=== PATIENT | female | born 1975 | race Caucasian/White ===

== ENCOUNTER 2017-03-13 02:13 | Emergency (ER) | payer OTHER ==
--- NOTE | ~2017-03-13 | CR72 ---
[facility] A Service of [facility] & [facility] RADIOLOGY TEXT RESULTS PATIENT: SERGE POPE LOCATION: [facility] : 75 UNIT #: [id number] AGE: [address]: Brian Del Rio SEX: F ORDER DR: [id number] [facility] [address] [place], [place] [address] [id number] E MR#: [id number] Acc #: [id number] NAME: SERGE POPE : 1975 SEX: F STUDY DATE/TIME: 03/13/2017 3:03 UNIT: [facility] ROOM: STUDY DESCRIPTION: CR Chest Single View Portable Attending Physician: Brian Del Rio P.A.-C. Ordering Physician: Brian Del Rio P.A.-C. Primary Care Physician: Primary Care Physician No MEDICAL IMAGING REPORT This report is preliminary unless electronic signature is present EXAM AP portable chest 03/13/2017 HISTORY Chest pain, heroin overdose today. COMPARISON AP portable chest 07/25/2016. FINDINGS A single AP portable view of the chest shows both lungs to be clear. The heart is normal in size. The mediastinal contour is normal. No significant bone abnormalities are seen. IMPRESSION Normal portable chest. Dictated by... Shilpa Zelaya M.D. THIS IS AN ELECTRONICALLY VERIFIED REPORT Shilpa Zelaya M.D. at 03/18/2017 4:11 PM AMADOR/tamela TD: 03/13/2017 08:43 JOB #: [id number] MEDICAL IMAGING REPORT Page 1 of 1 COPY
[~2017-03-13 02:13] MED LIST: CELEXA PO; DARVOCET-N 1001 TAB PO; DEPAKOTE PO; FLEXERIL PO; IBUPROFEN800 MG PO; KEPPRA500 MG PO; LORTAB 7.5-5001 TAB PO; MEDROL PO; NEXIUM20 MG PO; NO MEDICATIONS; PEPCID AC20 M2 PO; PHENERGAN25 MG PO; PRILOSEC PO
== END 2017-03-13 06:50 | disposition home or self-care (01) ==
LOC: CED 02:13
DX: T40.1X1A Poisoning by heroin, accidental (unintentional), initial encounter (principal); F11.10 Opioid abuse, uncomplicated; F17.210 Nicotine dependence, cigarettes, uncomplicated; Z88.5 Allergy status to narcotic agent; Z88.8 Allergy status to other drugs, medicaments and biological substances
CPT/HCPCS: 71010; 99283; 99284

== ENCOUNTER 2017-03-21 12:52 | Emergency (ER) | payer OTHER ==
--- NOTE | ~2017-03-21 | CR72 ---
[facility] A Service of [facility] RADIOLOGY TEXT RESULTS PATIENT: SERGE POPE LOCATION: [facility] : 75 UNIT #: [id number] AGE: [address]: Digna Nj MD SEX: F ORDER DR: [id number] [facility] [address] [place], [place] [address] [id number] E MR#: [id number] Acc #: [id number] NAME: SERGE POPE : 1975 SEX: F STUDY DATE/TIME: 03/21/2017 13:38 UNIT: [facility] ROOM: STUDY DESCRIPTION: CR Chest Single View Portable Attending Physician: Digna Nj M.D. Ordering Physician: Digna Nj M.D. Primary Care Physician: No Primary Care Physician MEDICAL IMAGING REPORT This report is preliminary unless electronic signature is present EXAM Portable chest. INDICATIONS Chest pain today after chest compressions. COMPARISON 03/13/2017 FINDINGS No acute-appearing infiltrate. Heart size normal. Visualized osseous structures are unremarkable. IMPRESSION No active disease. Dictated by... Samuel Zimmer M.D. THIS IS AN ELECTRONICALLY VERIFIED REPORT Samuel Zimmer M.D. at 03/22/2017 3:49 PM Ranjan TD: 03/22/2017 00:20 JOB #: [id number] MEDICAL IMAGING REPORT Page 1 of 1 COPY
== END 2017-03-21 15:02 | disposition home or self-care (01) ==
LOC: CED 12:52
DX: S20.219A Contusion of unspecified front wall of thorax, initial encounter (principal); F11.10 Opioid abuse, uncomplicated; F17.200 Nicotine dependence, unspecified, uncomplicated; Z88.8 Allergy status to other drugs, medicaments and biological substances; Z88.5 Allergy status to narcotic agent; Z88.6 Allergy status to analgesic agent; Z79.899 Other long term (current) drug therapy; X58.XXXA Exposure to other specified factors, initial encounter; Y92.9 Unspecified place or not applicable
CPT/HCPCS: 71010; 99283

== ENCOUNTER 2017-03-25 11:38 | Emergency (ER) | payer OTHER ==
[2017-03-25 13:03] LABS: BASOPHIL# 0.1 X10e3 (0-0.3); BASOPHIL% 1.2 % (0-2.5); EOSINOPHIL# 0.2 X10e3 (0-0.7); EOSINOPHIL% 2.7 % (0.0-7.0); HEMATOCRIT 35.6 % (35.0-45.0); HEMOGLOBIN 11.9 gm/dL (12.0-16.0); LYMPHOCYTE# 3.7 X10e3 (1.0-3.5); LYMPHOCYTE% 42.6 % (17.0-45.0); MEAN CELL VOLUME 94.2 FL (83-96); MEAN CORPUSCULAR HEMOGLOBIN 31.4 PG (28-34); MEAN CORPUSCULAR HGB CONC 33.3 g/dL (30-36); MEAN PLATELET VOLUME 9.2 FL (6.5-11.5); MONOCYTE# 0.8 X10e3 (0-1.0); MONOCYTE% 9.3 % (3.0-12.0); NEUTROPHIL# 3.8 X10e3 (1.5-7.1); NEUTROPHIL% 44.2 % (40-75); PLATELET COUNT 257 X10e3 (140-420); RED BLOOD COUNT 3.78 X10e (3.90-5.30); RED CELL DISTRIBUTION WIDTH 13.9 % (11.0-15.5); WHITE BLOOD COUNT 8.6 X10e3 (4.0-10.5)
[2017-03-25 13:04] LABS: DIFF IND NO
[2017-03-25 13:28] LABS: BUN/CREATININE RATIO 18.88; CALCIUM SERUM 8.7 mg/dL (8.4-10.2); CREATININE SERUM 0.9 mg/dL (0.6-1.4); GLOM FILT RATE Estimated 79.5 mL/min (>60); POTASSIUM 3.3 mmol/L (3.5-5.1)
== END 2017-03-25 13:44 | disposition home or self-care (01) ==
LOC: CED 11:38 → CFTX 11:38
PROVIDERS: Nurse Practitioner
DX: L03.113 Cellulitis of right upper limb (principal); Z90.49 Acquired absence of other specified parts of digestive tract; F17.210 Nicotine dependence, cigarettes, uncomplicated
CPT/HCPCS: 36415; 80048; 85025; 90471; 90715; 96360; 99284

== ENCOUNTER 2017-04-24 16:16 | Inpatient (IN) | payer OTHER ==
--- NOTE | ~2017-04-24 | CR71 ---
[facility] A Service of [facility] & [facility] RADIOLOGY TEXT RESULTS PATIENT: SERGE POPE LOCATION: [address] : 75 UNIT #: [id number] AGE: [address]: Franky Sherman MD SEX: F ORDER DR: [id number] [facility] [address] [place], [place] [address] [id number] I MR#: [id number] Acc #: [id number] NAME: SERGE POPE : 1975 SEX: F STUDY DATE/TIME: 04/24/2017 19:34 UNIT: [facility] ROOM: [facility] STUDY DESCRIPTION: CR Chest Single View Attending Physician: Melvin Palumbo M.D. Ordering Physician: Ed Asad Morales M.D. Primary Care Physician: No Primary Care Physician MEDICAL IMAGING REPORT This report is preliminary unless electronic signature is present EXAM Chest x-ray, 04/24/17. HISTORY PICC placement. TECHNIQUE AP portable chest x-ray. FINDINGS Newly placed right arm PICC tip is in good position in the mid SVC. No change since earlier today. The lungs are clear. No pleural effusion. IMPRESSION Newly placed PICC in good position. Dictated by... Saman Gruber M.D. THIS IS AN ELECTRONICALLY VERIFIED REPORT Saman Gruber M.D. at 04/28/2017 10:33 AM CAROLEE/azul TD: 04/24/2017 23:53 JOB #: [id number] MEDICAL IMAGING REPORT Page 1 of 1 COPY
--- NOTE | ~2017-04-24 | CO ---
Unit #: [id number] #: [id number] Patient: SERGE ZAMBRANO [id number] [facility] [address] [place], [place] [address] [id number] I MR#: [id number] NAME: SERGE ZAMBRANO [facility]: [facility] Age: 41 Sex: F Admission Date: 04/24/2017 : 1975 Attending Physician: Franky Sherman M.D. Primary Care Physician: Primary Care Physician No Consultation Date: 04/25/2017 CONSULTATION REPORT HISTORY OF PRESENT ILLNESS Ms. Zambrano is a 41-year-old white female with a history of seizure disorder, IV drug abuse, and substance abuse. She suffered a seizure yesterday, was admitted to [facility] ICU for observation. She is on mild pressors at this time, but is fully awake, alert, and hemodynamically stable. She complains of no risk factor symptoms. 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 PAST SURGICAL HISTORY Include laparotomy, tubal ligation, cholecystectomy. MEDICATIONS Include iron sulfate, Keppra, Trileptal, lisinopril, and metoprolol. ALLERGIES She has allergies to phenytoin, Ketoralac and tramadol. SOCIAL HISTORY Positive for tobacco and IV drugs. FAMILY HISTORY Negative. REVIEW OF SYSTEMS Negative for shortness of breath, cough, sputum production, fever, chills, hemoptysis, hoarseness or weight loss. She has had no chest pain, nausea, vomiting, diarrhea, skin lesions, but has suffered seizures and continued substance abuse. PHYSICAL EXAMINATION VITAL SIGNS: She is afebrile, hemodynamically stable. HEAD AND NECK: Significant for pupils are round and reactive to light. Sclerae nonicteric. There is no supraclavicular or cervical adenopathy. CHEST: Has extremely rare wheeze, but no areas of consolidation. CARDIAC: Systolic murmurs present without S3. ABDOMEN: Soft and nontender without an enlargement of liver and spleen. EXTREMITIES: Showed multiple tattoos, but no clubbing or cyanosis. NEUROLOGIC: She is awake, alert, and oriented x3. It showed no gross focal defects. MUSCULOSKELETAL: Joints are not inflamed or swollen at this time. Unit #: [id number] #: [id number] Patient: SERGE ZAMBRANO DIAGNOSTIC STUDIES LABORATORY RESULTS: Included sodium 137, potassium 3.4, chloride 114, CO2 of 20, glucose 96, creatinine 0.8. CBC showed white count of 8.5, hematocrit of 29. IMAGING STUDIES: Chest x-ray by report showed clear lungs. IMPRESSION Hemodynamically stable following a seizure disorder and ongoing substance abuse. We will continue ICU observation until her seizures are well controlled and follow with her. Dictated by... Jorden Toney/obinna TD: 04/26/2017 07:09 JOB #: [id number] CONSULTATION REPORT Page 1 of 1 X Remy Crooks MD X CONSULTATION REPORT
--- NOTE | ~2017-04-24 | CO ---
Unit #: [id number] #: [id number] Patient: SERGE POPE [id number] [facility] [address] [place], [place] [address] [id number] I MR#: [id number] NAME: SERGE POPE. ROOM: [facility] Age: 41 Sex: F Admission Date: 04/24/2017 : 1975 Attending Physician: Franky Sherman M.D. Primary Care Physician: Primary Care Physician No Consultation Date: 04/25/2017 CONSULTATION REPORT REASON FOR CONSULTATION Seizure. PATIENT IDENTIFICATION This is a 41-year-old right-handed white female, who was evaluated in room ICU 17 at [facility]. SOURCE OF INFORMATION The patient and previous records. Actually, I saw this patient in 07/2016. PROBLEM LIST 1. History of polysubstance abuse. 2. IV drug use. 3. Prior seizures. 4. Endocarditis. 5. History of back problem. 6. Prior history of septic pulmonary emboli. 7. Prior history of pneumonia. 8. Lumbar diskitis, L5-S1. 9. Prior history of anemia. 10. Thrombocytopenia. 11. Prior history of UTI. 12. GERD. 13. Prior history of rhabdomyolysis. HISTORY OF PRESENT ILLNESS This is a 41-year-old female, who is actually known to me. She was seen here last year. She had several seizure. She had PRES. She was started on several antiepileptics and she did fairly well. Then, she has to follow up for her endocarditis and other conditions and it looks like things were going well until the last few days when she came back to see the family and she did of management of epilepsy. The first one she stopped taking her antiepileptics and the second one was she started doing drugs and some stimulants like meth and also she uses heroin. She may have overdosed. She was hypotensive and she came in and she had at least one witnessed seizure, maybe more. She was given her medication and she did fairly well. She is now awake and alert and oriented and wants to go home. Previously, she had vision changes, but denies anything. Her head CT looked okay. Her labs are being investigated. She says that she has done fairly well since July when she was Unit #: [id number] #: [id number] Patient: SERGE POPE compliant. I am not sure whom she is following up with neurologically. Her blood pressure was low. So, now she is doing very well neurologically otherwise intact, no status, no seizure. PAST MEDICAL HISTORY As discussed above. PAST SURGICAL HISTORY 1. She has had cholecystectomy. 2. Bilateral tubal ligation. 3. Exploratory laparotomy. ALLERGIES 1. Phenytoin. 2. Ketorolac. 3. Tramadol. HOME MEDICATIONS Iron sulfate, Keppra 500 mg b.i.d., lisinopril, metoprolol. FAMILY HISTORY No seizures or neurological issues. SOCIAL HISTORY Unfortunately, she continues to do IV drugs or maybe this was relapse. She continues to smoke about 1-1/2 pack per day. REVIEW OF SYSTEMS Mostly as discussed in history of present illness. CONSTITUTIONAL: She denies any further seizures. Denies any weight issues, fever, chills, rigor, or sweats. HEENT: No headaches. No double vision, earache, runny nose, or sore throat. No loss of vision. NECK: No neck pain. CARDIOVASCULAR: No chest pain, clubbing, cyanosis, orthopnea, or palpitation. PULMONARY: No shortness of air, cough, or expectoration. GI: No nausea, vomiting, diarrhea, or constipation. GENITOURINARY: No genitourinary symptom. EXTREMITIES: No extremity problems otherwise. BACK: No active back problem. PSYCHIATRIC: No psychotic issue. NEUROLOGIC: Seizure. No other hematologic, dermatologic, or endocrine problem known to me right now. PHYSICAL EXAMINATION VITAL SIGNS: Temperature is 98.2, pulse 89, respirations 16, blood pressure 97/67, O2 saturations were 97% to 99%. Weight of 125 pounds. BMI was 20. NEUROLOGIC: The patient is awake. She is alert. She is fully oriented. She can name. She can follow commands. No right or left confusion. No finger agnosia. Cranial nerve examination demonstrates full villalpando of vision to Unit #: [id number] #: [id number] Patient: SERGE POPE confrontation. Eye movements are conjugate. I did not see any ptosis. I did not see any nystagmus. Funduscopic examination was not successful. Sensation on the face and scalp are normal. Strength of muscles of facial expression normal. Hearing seemed to be intact bilaterally. Tongue was midline. Uvula was midline. Palate elevation was normal. Head turning and shoulder shrugs were unremarkable. No neck stiffness was seen. Motor examination demonstrated normal bulk, tone. Strength was essentially 5-/5 all over. Sensory examination intact for soft touch and pain sensation. No extinction was seen. Romberg was not evaluated. Gait examination was deferred. I could not get any reflexes. Toes are equivocal. Coordination was otherwise unremarkable. DIAGNOSTIC STUDIES LABORATORY RESULTS: Reviewed. Calcium was 7.7, albumin was 1.9. White count was 8.5, RBC count was 2.98, H and H of 9.6 and 27.4, and platelet count was 180. Urine drug screen was positive for amphetamines and marijuana. IMAGING STUDIES: Head CT was reported as unremarkable. IMPRESSION This is a 41-year-old female with known history of seizures and endocarditis and other problems. Neurologically, she is awake and alert and fully oriented. Neurologically, she is not in status. Neurologically, what I found was that she stopped taking her Keppra and I am not sure if she is taking Trileptal, but we will try to resume all her home medications and whatever they were, because so far I have not heard there were causing any side effects or other issues but followup with Neurology. She is not in status. She has not had any further seizures. The second bad thing that she did was she started taking stimulants and drugs, so refrain from that and may be referred to NA. Endocarditis and other issues that need to be addressed by the primary team. I will observe her neurologically. Seizure precautions and state laws apply again. Call me for any other questions, issues, or concerns. If there is any further issues please call me again and only issue I have is to resume the home medication which she promised and I am not really seeing Trileptal, but I will try to find out. If there is any other questions, please let me know. Previously, she was on Vimpat, so likely that may have been substituted. Sodium is okay. The RBC count is little bit low, but that needs to be followed up otherwise observe and follow up with Neurology. Dictated by... Angel Alarcon M.D. NEHAL/obinna TD: 04/26/2017 06:06 JOB #: [id number] Unit #: [id number] #: [id number] Patient: SERGE POPE CONSULTATION REPORT Page 1 of 1 X Angel Alarcon MD CONSULTATION REPORT
--- NOTE | ~2017-04-24 | HP ---
Unit #: [id number] #: [id number] Patient: SERGE POPE [id number] [address] [address] [id number] I MR#: [id number] NAME: SERGE POPE ROOM: [facility] Age: 41 Sex: F Admission Date: 04/24/2017 : 1975 Attending Physician: Mehul Palumbo M.D. Primary Care Physician: Primary Care Physician No HISTORY AND PHYSICAL CHIEF COMPLAINT Seizures. HISTORY OF PRESENT ILLNESS The patient is a 41-year-old female with history of IV drug abuse and tricuspid valve endocarditis, status post medical treatment, brought to the emergency room at [facility] with seizures. The patient stated the patient was clean since July of last year and then went to see her kids. The patient started using heroin and meth over the weekend. The patient was found to be hypotensive for the last few days with blood pressure in the range of 60s to 70s. However, this morning, the patient had a syncopal episode with seizures. The patient was brought to the emergency room for the above reasons. The patient denies any fever, chills, nausea, or vomiting. The patient was found to be hypotensive in the emergency room at the [facility] with the blood pressure ranging in the 73/37 and received a total of 6 liters of fluid. The blood pressure right now is in the range of 85 to 90s. The patient is being admitted for the above reasons. PAST MEDICAL HISTORY 1. History of back problems. 2. Polysubstance abuse. 3. IV drug abuse. 4. Seizure disorder. 5. GERD. 6. Endocarditis. PAST SURGICAL HISTORY 1. Exploratory laparotomy. 2. Bilateral tubal ligation. 3. Cholecystectomy. HOME MEDICATIONS 1. Iron sulfate. 2. Keppra. 3. Trileptal. 4. Lisinopril. 5. Metoprolol. ALLERGIES 1. Phenytoin. 2. Ketoralac. 3. Tramadol. Unit #: [id number] #: [id number] Patient: SERGE POPE SOCIAL HISTORY Smokes 1-1/2 packs per day. Does IV drug abuse. FAMILY HISTORY Reviewed and none. REVIEW OF SYSTEMS A 14-point review of systems performed and only pertinent positive findings are described above, remaining are negative. PHYSICAL EXAMINATION VITAL SIGNS: Temperature afebrile 97.9, pulse 62, blood pressure 73/37, saturating 99% at room air. GENERAL: Patient is lying on the bed not in acute distress. HEENT: Atraumatic, normocephalic. Pupils equal, round and reactive to light and accommodation. Dry mucous membranes. NECK: Supple. Trachea midline. LUNGS: Clear to auscultation. No rhonchi, no wheezing. HEART: Regular rate and rhythm. Positive for murmur. ABDOMEN: Soft, positive bowel sounds. EXTREMITIES: No cyanosis, no clubbing. Positive for track dias and tattoos. NEUROLOGIC: Alert, awake, oriented. No gross focal motor deficit. DIAGNOSTIC STUDIES LABORATORY: Lactic acid 1.1. Troponin less than 0.05. Sodium 137, potassium 3.9, chloride 108, bicarb 23, glucose 67, BUN 19, creatinine 1.1, AST 54, ALT 55, magnesium 1.6. Lipase 26. BNP 44. WBC 11.4, hemoglobin 11.1, hematocrit 32.3, platelets 183. INR 1.1. UA shows trace leukocyte esterase and trace blood, negative bacteria. IMAGING: CT of the face, head and neck negative. CT of the negative. Negative cervical spine CT, no fracture seen. Chest x-ray shows normal upright chest. ASSESSMENT AND PLAN 1. Seizures. 2. Hypotension. 3. IV drug abuse. 4. History of tricuspid valve endocarditis. PLAN 1. Admit patient as inpatient to ICU. 2. Continue with IV fluids. 3. Will have a pulmonary consult with Dr. Stokes who has seen in the past. 4. Neurology consult for seizures. Will continue the home antiseizure medications. 5. I checked an echo. 6. Check urine toxicology. 7. Keep the MAP up to 65. If needed, will start the low-dose Levophed for the blood pressure. 8. Further recommendations will follow as more lab results become available. Unit #: [id number] #: [id number] Patient: SERGE POPE Dictated by Jorden Malloy TD: 04/24/2017 20:28 JOB #: [id number] HISTORY AND PHYSICAL Page 1 of 1 X MEHUL PALUMBO MD HISTORY AND PHYSICAL
--- NOTE | ~2017-04-24 | DS ---
Unit #: [id number] #: [id number] Patient: SERGE POPE [id number] [place], [place] [address] [id number] I MR#: [id number] NAME: SERGE POPE. ROOM: [facility] Age: 41 Sex: F Admission Date: 04/24/2017 : 1975 Discharge Date: 04/26/2017 Attending Physician: Franky Sherman M.D. Primary Care Physician: No Primary Care Physician DISCHARGE SUMMARY DISCHARGE DIAGNOSES 1. Seizure. 2. Hypertension. 3. IV drug abuse. 4. History of tricuspid valve endocarditis. HOSPITAL COURSE The patient is a 41-year-old female with a history of IV drug abuse. She states she has been in recovery since July. Apparently she went to visit her children and went without her medication. Additionally, she states that she did IV drugs. While there she was noted to have seizures. She presented to [facility] and was ultimately transferred to [facility] for admission. The patient initially had a blood pressure of 73/37 and was aggressively volume resuscitated. She was started briefly on pressors. The patient's blood pressure did recover well and she was taken off pressors at 16:00 the day prior to discharge. She has required no further pressors and no further treatment for seizures or hypotension. The patient's most likely cause for seizure and hypertension and are failure to take her medications and IV drug use. The patient has been counseled about further abstinence from IV drugs and taking her medications in a timely fashion. The patient understands and agrees. DISCHARGE MEDICATIONS 1. Trileptal 150 mg p.o. t.i.d. 2. Iron 325 mg p.o. b.i.d. 3. Keppra 500 mg p.o. b.i.d. 4. Trazodone 100 mg p.o. at nighttime. 5. Multivitamin daily. 6. Remeron 50 mg p.o. at nighttime. 7. Protonix 40 mg p.o. daily. FOLLOWUP I have asked the patient to follow up with her primary care provider at the earliest available appointment. Dictated by... Franky Sherman M.D. CAM/gz Unit #: [id number] #: [id number] Patient: BEAU POPEWESTON Jackson TD: 04/28/2017 08:33 JOB #: [id number] DISCHARGE SUMMARY Page 1 of 1 X Franky Sherman MD X DISCHARGE SUMMARY
[2017-04-24] MEDS ORDERED: PROTONIX PO (19:40)
[2017-04-24] MEDS ORDERED: METOPROLOL TART25 MG PO (19:41)
[2017-04-24] MEDS ORDERED: REMERON15 MG PO (19:43)
[2017-04-24] MEDS ORDERED: MULTIVITAMINS1 EAC3 PO (19:43)
[2017-04-24] MEDS ORDERED: TRAZODONE HCL100 MG PO (19:44)
[2017-04-24] MEDS ORDERED: LISINOPRIL5 MG PO (19:45)
[2017-04-24] MEDS ORDERED: IRON325 MG PO (19:45)
[2017-04-24] MEDS ORDERED: KEPPRA500 M2 PO (19:45)
[2017-04-24 20:37] LABS: AMPHETAMINE POS (NEG); BARBITURATES NEG (NEG); BENZODIAZEPINES NEG (NEG); COCAINE NEG (NEG); MARIJUANA POS (NEG); OPIATES NEG (NEG); TRICYCLIC ANTIDEPRESSANTS NEG (NEG); U METHADONE NEG (NEG)
[2017-04-25 01:40] LABS: BASOPHIL# 0.1 X10e3 (0-0.3); BASOPHIL% 1.3 % (0-2.5); EOSINOPHIL# 0.3 X10e3 (0-0.7); EOSINOPHIL% 3.5 % (0.0-7.0); HEMOGLOBIN 9.6 gm/dL (12.0-16.0); LYMPHOCYTE# 3.7 X10e3 (1.0-3.5); LYMPHOCYTE% 43.5 % (17.0-45.0); MEAN CELL VOLUME 97.4 FL (83-96); MEAN CORPUSCULAR HEMOGLOBIN 32.2 PG (28-34); MEAN PLATELET VOLUME 9.2 FL (6.5-11.5); MONOCYTE% 11.5 % (3.0-12.0); NEUTROPHIL# 3.4 X10e3 (1.5-7.1); NEUTROPHIL% 40.2 % (40-75); PLATELET COUNT 180 X10e3 (140-420); RED BLOOD COUNT 2.98 X10e (3.90-5.30); RED CELL DISTRIBUTION WIDTH 13.4 % (11.0-15.5); WHITE BLOOD COUNT 8.5 X10e3 (4.0-10.5)
[2017-04-25 01:44] LABS: DIFF IND NO
[2017-04-25 02:13] LABS: BUN/CREATININE RATIO 13.75; CALCIUM SERUM 7.7 mg/dL (8.4-10.2); CREATININE SERUM 0.8 mg/dL (0.6-1.4); GLOM FILT RATE Estimated 91.7 mL/min (>60); POTASSIUM 3.4 mmol/L (3.5-5.1)
[2017-04-26] MEDS ORDERED: TRILEPTAL PO (12:19)
== END 2017-04-26 13:08 | disposition home or self-care (01) | DRG 101 ==
LOC: CICCU3 16:16
PROVIDERS: Internal Medicine
PROC: B246YZZ Ultrasonography of Right and Left Heart using Other Contrast (ICD-10-PCS; principal; 2017-04-25)
DX: G40.909 Epilepsy, unspecified, not intractable, without status epilepticus (principal); I95.9 Hypotension, unspecified; Z91.14 Patient's other noncompliance with medication regimen; K21.9 Gastro-esophageal reflux disease without esophagitis; I10 Essential (primary) hypertension; Z90.49 Acquired absence of other specified parts of digestive tract; F17.210 Nicotine dependence, cigarettes, uncomplicated; F15.10 Other stimulant abuse, uncomplicated; F11.10 Opioid abuse, uncomplicated; I07.1 Rheumatic tricuspid insufficiency
CPT/HCPCS: 71010; 80048; 80307; 85025; 93306

== ENCOUNTER 2017-05-07 13:39 | Emergency (ER) | payer OTHER ==
[~2017-05-07 13:39] MED LIST changes: +IRON325 MG PO; +KEPPRA500 M2 PO; +LISINOPRIL5 MG PO; +METOPROLOL TART25 MG PO; +MULTIVITAMINS1 EAC3 PO; +PROTONIX PO; +REMERON15 MG PO; +TRAZODONE HCL100 MG PO; +TRILEPTAL PO
[2017-05-07 14:30] LABS: BASOPHIL# 0.1 X10e3 (0-0.3); EOSINOPHIL# 0.2 X10e3 (0-0.7); EOSINOPHIL% 2.2 % (0.0-7.0); HEMATOCRIT 34.5 % (35.0-45.0); HEMOGLOBIN 11.5 gm/dL (12.0-16.0); LYMPHOCYTE# 4.4 X10e3 (1.0-3.5); LYMPHOCYTE% 40.8 % (17.0-45.0); MEAN CELL VOLUME 93.1 FL (83-96); MEAN CORPUSCULAR HEMOGLOBIN 31.1 PG (28-34); MEAN CORPUSCULAR HGB CONC 33.4 g/dL (30-36); MEAN PLATELET VOLUME 8.7 FL (6.5-11.5); MONOCYTE# 0.8 X10e3 (0-1.0); MONOCYTE% 7.5 % (3.0-12.0); NEUTROPHIL# 5.2 X10e3 (1.5-7.1); NEUTROPHIL% 48.5 % (40-75); PLATELET COUNT 342 X10e3 (140-420); RED BLOOD COUNT 3.71 X10e (3.90-5.30); RED CELL DISTRIBUTION WIDTH 13.4 % (11.0-15.5); WHITE BLOOD COUNT 10.8 X10e3 (4.0-10.5)
[2017-05-07 14:37] LABS: DIFF IND NO; PARTIAL THROMBOPLASTIN TIME 25.9 SECONDS (23.5-31.3)
[2017-05-07 14:55] LABS: ALBUMIN SERUM 3.4 g/dL (3.5-5.0); BILIRUBIN, DIRECT 0.1 mg/dL (0.0-0.2); BILIRUBIN,INDIRECT 0.3 mg/dL (0.0-0.9); BILIRUBIN,TOTAL 0.4 mg/dL (0.2-2.0); CALCIUM SERUM 8.6 mg/dL (8.4-10.2); CREATININE SERUM 0.7 mg/dL (0.6-1.4); GLOM FILT RATE Estimated 107.6 mL/min (>60); PROTEIN TOTAL SERUM 6.5 g/dL (6.0-8.3)
[2017-05-07 14:58] LABS: POTASSIUM 2.5 mmol/L (3.5-5.1)
== END 2017-05-07 18:25 | disposition home or self-care (01) ==
LOC: CED 13:39
PROVIDERS: Emergency Medicine
DX: K58.0 Irritable bowel syndrome with diarrhea (principal); E87.6 Hypokalemia; Z87.442 Personal history of urinary calculi; Z90.49 Acquired absence of other specified parts of digestive tract; F17.210 Nicotine dependence, cigarettes, uncomplicated; Z88.5 Allergy status to narcotic agent
CPT/HCPCS: 36415; 80048; 80076; 84703; 85025; 85610; 85730; 99283

== ENCOUNTER 2017-05-20 12:42 | Emergency (ER) | payer OTHER | END 2017-05-20 13:55 | disposition home or self-care (01) | LOC: CED 12:42 | DX: T40.1X1A Poisoning by heroin, accidental (unintentional), initial encounter (principal); F17.200 Nicotine dependence, unspecified, uncomplicated; Z88.8 Allergy status to other drugs, medicaments and biological substances; Z88.5 Allergy status to narcotic agent; Z98.51 Tubal ligation status; Z90.49 Acquired absence of other specified parts of digestive tract; Z98.890 Other specified postprocedural states | CPT/HCPCS: 99284 ==

== ENCOUNTER 2017-06-11 10:22 | Emergency (ER) | payer OTHER ==
[~2017-06-11] VITALS: Ht 160 cm; Wt 56.7 kg
--- NOTE | ~2017-06-11 | CR230 ---
[facility] A Service of [facility] RADIOLOGY TEXT RESULTS PATIENT: SERGE POPE LOCATION: [facility] : 75 UNIT #: [id number] AGE: [address]: Charline Ocampo SEX: F ORDER DR: [id number] [facility] [address] [place], [place] [address] [id number] E MR#: [id number] Acc #: [id number] NAME: SERGE POPE. : 1975 SEX: F STUDY DATE/TIME: 06/11/2017 UNIT: [facility] ROOM: STUDY DESCRIPTION: CR Shoulder Min 2 View Rt Attending Physician: Charline Ocampo P.A.-C. Referring Physician: No Ref Unknown Ordering Physician: Charline Ocampo P.A.-C. Primary Care Physician: No Primary Care Physician MEDICAL IMAGING REPORT This report is preliminary unless electronic signature is present EXAM Right shoulder 3 views 06/11/2017 1133 hours HISTORY 41-year-old woman who fell 4 days ago, complaining of right neck and shoulder pain, numbness in fingers. COMPARISON Chest film 04/24/2017 FINDINGS AP views in internal/external rotation and a scapula Y-view demonstrate normal bone density and range of motion. There is no fracture, dislocation or degenerative change. On the scapula Y-view, question is raised of a defect in the second rib that could be a nondisplaced fracture. This is not seen on the AP views in internal and external rotation. Correlate with any pain at the anterior second rib. IMPRESSION 1. No shoulder fracture or dislocation. 2. Serpiginous lucency in the anterior aspect of the right second rib is seen only on the scapula Y-view and could be artifact. The presence of a nondisplaced 2nd rib fracture cannot be excluded. Dictated by... Noris Chen M.D. THIS IS AN ELECTRONICALLY VERIFIED REPORT Noris Chen M.D. at 06/11/2017 2:37 PM [facility] A Service of [facility] RADIOLOGY TEXT RESULTS PATIENT: SERGE POPE LOCATION: [facility] : 75 UNIT #: [id number] AGE: [address]: Charline Ocampo SEX: F ORDER DR: Ronald TD: 06/11/2017 13:36 JOB #: [id number] MEDICAL IMAGING REPORT Page 1 of 1 COPY
--- NOTE | ~2017-06-11 | CR58 ---
[facility] A Service of [facility] RADIOLOGY TEXT RESULTS PATIENT: SERGE POPE LOCATION: [facility] : 75 UNIT #: [id number] AGE: [address]: Charline Ocampo SEX: F ORDER DR: [id number] [facility] [address] [place], [place] [address] [id number] E MR#: [id number] Acc #: [id number] NAME: SERGE POPE : 1975 SEX: F STUDY DATE/TIME: 06/11/2017 11:24 UNIT: [facility] ROOM: STUDY DESCRIPTION: CR Cervical Spine 2 or 3 Views Attending Physician: Charline Ocampo P.A.-C. Referring Physician: Primary Care Physician No Ordering Physician: Charline Ocampo P.A.-C. Primary Care Physician: Primary Care Physician No MEDICAL IMAGING REPORT This report is preliminary unless electronic signature is present EXAM Cervical spine series 06/11/2017 1124 hours HISTORY 41-year-old woman complaining of right neck pain and right shoulder pain with numbness in fingers for 4 days following a fall [address] cervical spine 04/24/2017. FINDINGS AP, lateral and open mouth views are performed. C1-T1 are visualized. There is no prevertebral soft tissue swelling. There is minimal spurring anteriorly at C5-6. There is no fracture or malalignment. IMPRESSION No fracture or malalignment. Mild spurring at C5-6. No change from CT cervical spine 04/24/2017. Dictated by... Noris Chen M.D. THIS IS AN ELECTRONICALLY VERIFIED REPORT Noris Chen M.D. at 06/11/2017 2:37 PM HAMZAH/willian TD: 06/11/2017 13:39 JOB #: [id number] MEDICAL IMAGING REPORT Page 1 of 1 COPY
== END 2017-06-11 11:57 | disposition home or self-care (01) ==
LOC: CED 10:22 → CFTX 10:53 → CED 10:53 → CFTX 11:57
DX: S22.31XA Fracture of one rib, right side, initial encounter for closed fracture (principal); F17.210 Nicotine dependence, cigarettes, uncomplicated; W01.198A Fall on same level from slipping, tripping and stumbling with subsequent striking against other object, initial encounter; Y92.009 Unspecified place in unspecified non-institutional (private) residence as the place of occurrence of the external cause
CPT/HCPCS: 72040; 73030; 99283